=== PATIENT | male | born 1940 | race Caucasian/White ===

== ENCOUNTER 2021-09-03 20:20 | Inpatient (IN) | payer MEDICARE, SELFPAY ==
--- NOTE | ~2021-09-03 | MR_ITS ---
EXAMINATION: MR BRAIN WITHOUT CONTRAST CLINICAL INFORMATION: Rule out frontotemporal dementia. COMPARISON: None. TECHNIQUE: Multiplanar, multisequence imaging of the brain was performed without contrast. Slightly limited study with motion artifacts. FINDINGS: No diffusion abnormalities are identified to suggest an acute infarct. No mass effect or midline shift is seen. There is generalized parenchymal volume loss with concordant ex vacuo prominence of the ventricles. There is no accentuated volume loss within the frontal or temporal lobes relative to the remainder of the brain parenchyma. No evidence of hydrocephalus. No extra-axial fluid collections are seen. The brainstem and cerebellum are normal. The gradient refocused acquisition demonstrates no pathologic magnetic susceptibility artifact to indicate underlying acute or chronic blood products. The craniovertebral junction, marrow signal, and midline structures are normal. The major intracranial flow voids at the level of the [place] are preserved. The dural venous sinus flow voids are maintained. The left mastoid air cells are well aerated. There is lobulated mucosal thickening anteroinferiorly within the right maxillary sinus. Trace fluid in the right mastoid air cells. There is an incompletely characterized 2 cm mass in the superficial lobe of the right parotid gland. An additional heterogeneous T2 hyperintense 1.1 cm round lesion is noted within the superficial lobe of the left parotid gland as well. MR/MR head/brain wo con IMPRESSION: No acute intracranial process. Mild generalized parenchymal volume loss. 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 Recommend followup ENT evaluation.
[2021-09-03 21:30] VITALS: BMI 24.5
[2021-09-03 21:45] VITALS: BP 120/59; PULSE 89; RESP 17; TEMP 36.6; O2SAT 94
--- NOTE | 2021-09-03 22:39 | PC.ADMIT ---
Patient arrived via EMS stretcher onto unit at 20:35, signed a CV. 81year old male who lives independently with his : Patient was transferred from [facility] after spending 3 days on a medical unit for observation and gaining medical clearance. Per medical report and Crisis documentation, patient had been experiencing AVH for the last year that had worsened in the last month, which coincided with patient being started on Valium. Patient able to partake in admission assessment, calm and cooperative; A&Ox2-3, memory not fully intact, pleasantly confused; able to share experience of hallucinations that he had at home, Seeing people and places....I have never experienced anything like that before and it was scary. Per Crisis report, patient had reported command hallucinations sometimes the voices tell me to to hurt myself and others but I don't go there. Denying having AVH at this time; denies feeling hopeless or helpless at this time. Denies SI/HI. Patient reports having balance issues and sees a neurologist outpatient; patient reported two falls at home in the last 6 months, will be placed on [place] Risk Protocol with a bed alarm at night. Also according to his , patient was walking independently last week, uses no assistive devices other than grab bars in the house. Upon physical assessment he was noted to have a tremor in hands, greater in right hand/wrist; intermittent twitching of extremities at rest when in bed: noted to need multiple attempts to stand from seated position with a slight unsteady/wobbly gait; All other parts of physical assessment WNL. Patient was given a tour and oriented to the unit; signed releases; copy of HCP was placed in his chart. Upon Patient's request, this RN called and updated his Lizzy of his arrival. Patient placed on 15minute checks for safety.
[2021-09-04] MEDS: Levothyroxine Sodium 100 MCG TABLET PO (07:26)
[2021-09-04 08:35] VITALS: BP 118/69; PULSE 84; RESP 16; TEMP 36.2; O2SAT 95
[2021-09-04] MEDS: Multivitamin TABLET 1 TAB PO (08:50)
[2021-09-04] MEDS: hydroCHLOROthiazide 12.5 MG TABLET PO (08:50)
[2021-09-04] MEDS: Folic Acid 1 MG TABLET PO (08:50)
[2021-09-04] MEDS: Lithium Carbonate ER 300 MG TABLET.ER PO (08:51)
[2021-09-04] MEDS: ARIPiprazole 5 MG TABLET PO (08:51)
[2021-09-04] MEDS: amLODIPine Besylate 5 MG TABLET PO (08:51)
--- NOTE | 2021-09-04 14:06 | HO.PSYADMNOT ---
HPI Date of Service: 09/04/21 Chief Complaint: . HPI Narrative: pt reports he was hallucinating at home and presented to [facility] for help with hallucinations. he is aware he has been transferred here, to a hitesh unit, to pursue Tx for that. he reports he has not had any VH for 2 weeks, however, prior to admission to [facility]. the hallucinations could be of both animate and inanimate things. he states he realized there was a problem when he witness the trees in his back yard start walking away. denies SI/HI, states he is an upbeat dayanna. c/o not sleeping as well as he should, but otherwise no complaints. agreeable to increase HS regimen for better sleep. Past Psychiatric History: bipolar disorder Dx VH started a few yrs ago and he had w/u with CT [facility], neuropsych testing. risperidone was prescribed and was largely effective in addressing the VH. no H/O SI/SA/SIB/HI/HIB no h/o psych hosps long h/o outpt Tx and medication compliance Medical Evaluation Reviewed: Hospitalist Ella Pending [facility] Medical History (Updated 09/04/21 @ 14:19 by Ramana Youssef) Bipolar disorder Celiac disease Chronic kidney disease COPD (chronic obstructive pulmonary disease) Hypertension Narrative: vascular dementia Surgical History (Updated 09/04/21 @ 05:44 by Cherie Carver RN) History of hernia repair Family History: not obtained Social History: lives in a house with his . 61 yrs. 4 children. went to [employer] for education. was a teacher for 40 yrs. Substance History: h/o drinking 1-2x weekly until stopping in 1999 no other substance use Hx Trauma History: denies Diagnostics Vital Signs (24Hr): Vital Signs - 24 hr 09/03/21 21:45 09/04/21 08:35 Temperature 97.8 F 97.1 F Pulse Rate 89 84 Respiratory Rate 17 16 Blood Pressure 120/59 L 118/69 Pulse Oximetry 94 95 BMI result Body Mass Index 24.5 Meds/Allergies Meds Home Medications Acetaminophen (Acetaminophen 325 Mg Tablet) 650 mg PO Q6H PRN PRN Reason: Headache/Pain Mild Scale (1-3) Al Hydroxide/Mg Hydroxide (Magnesium Hydrox/Alum Hydrox 30 Ml Oral.Susp) 30 ml PO Q6H PRN PRN Reason: Heartburn/Nausea Amlodipine Besylate (Amlodipine Besylate 5 Mg Tablet) 5 mg PO DAILY [facility]; Protocol Last Admin: 09/04/21 08:51 Dose: 5 mg Documented by: Aripiprazole (Aripiprazole 5 Mg Tablet) 5 mg PO DAILY [facility] Last Admin: 09/04/21 08:51 Dose: 5 mg Documented by: Folic Acid (Folic Acid 1 Mg Tablet) 1 mg PO DAILY [facility] Last Admin: 09/04/21 08:50 Dose: 1 mg Documented by: Hydrochlorothiazide (Hydrochlorothiazide 12.5 Mg Tablet) 12.5 mg PO DAILY [facility]; Protocol Last Admin: 09/04/21 08:50 Dose: 12.5 mg Documented by: Hydroxyzine HCl (Hydroxyzine Hcl 25 Mg Tablet) 25 mg PO BEDTIME PRN PRN Reason: Anxiety Levothyroxine Sodium (Levothyroxine Sodium 100 Mcg Tablet) 100 mcg PO DAILY@0600 [facility] Last Admin: 09/04/21 07:26 Dose: 100 mcg Documented by: [place] Carbonate ([place] Carbonate Er 300 Mg Tablet.Er) 300 mg PO DAILY [facility] Last Admin: 09/04/21 08:51 Dose: 300 mg Documented by: Magnesium Hydroxide (Milk Of Magnesia 30 Ml Oral.Susp) 30 ml PO DAILY PRN PRN Reason: Constipation Multivitamins/Vitamin C (Multivitamin Tablet) 1 tab PO DAILY [facility] Last Admin: 09/04/21 08:50 Dose: 1 tab Documented by: Non-Formulary Medication (Trelegy Ellipta) 1 puff INHALE DAILY [facility] Olanzapine (Olanzapine 5 Mg Tablet) 5 mg PO DAILY PRN PRN Reason: Agitation Trazodone HCl (Trazodone Hcl 50 Mg Tablet) 12.5 mg PO TID PRN PRN Reason: Anxiety Trazodone HCl (Trazodone Hcl 25 Mg Halftab) 25 mg PO BEDTIME PRN PRN Reason: Insomnia Trazodone HCl (Trazodone Hcl 50 Mg Tablet) 50 mg PO BEDTIME PRN PRN Reason: Insomnia Allergies Allergies Allergy/AdvReac Type Severity Reaction Status Date / Time gluten Allergy Unknown Verified 09/04/21 07:52 Mental Status Exam Mental Status Exam Narrative: appropriately dressed and groomed. cooperative with interview. no PMA/PMR. speech nml in rate, amount, loudness, tone, latency. thoughts linear and logical. affect full range, consistent with context, normo-intense, non-labile. mood upbeat dayanna. denies SI/HI. denies any AVH since before he was admitted to [facility]. Assessment & Plan Assessment & Plan (1) Hallucinosis: Status: Acute Code(s): F28 - Other psychotic disorder not due to a substance or known physiological condition (2) Vascular dementia: Status: Acute Code(s): F01.50 - Vascular dementia without behavioral disturbance Assessment and Plan: continue med trial started at [facility] - abilify 5 daily with zyprexa 5 PRN. collateral in a.m. Reason for continued inpatient stay Substantial Risk for: harm to others, inability to function and rapid decompensation
[2021-09-04 19:30] VITALS: BP 131/61; PULSE 88; RESP 19; TEMP 36.4; O2SAT 97
[2021-09-05] MEDS: Levothyroxine Sodium 100 MCG TABLET PO (05:11)
[2021-09-05 08:00] VITALS: BP 121/64; PULSE 80; RESP 17; TEMP 36.4; O2SAT 95
[2021-09-05] MEDS: amLODIPine Besylate 5 MG TABLET PO (08:34)
[2021-09-05] MEDS: ARIPiprazole 5 MG TABLET PO (08:34)
[2021-09-05] MEDS: Multivitamin TABLET 1 TAB PO (08:34)
[2021-09-05] MEDS: Folic Acid 1 MG TABLET PO (08:34)
[2021-09-05] MEDS: hydroCHLOROthiazide 12.5 MG TABLET PO (08:34)
[2021-09-05] MEDS: Lithium Carbonate ER 300 MG TABLET.ER PO (08:34)
--- NOTE | 2021-09-05 12:45 | PM.IMCN ---
History of Present Illness Data of Consult Service Date: 09/05/21 Primary Care Provider: Dean Cuevas MD HPI Reason for consult: Routine Medical Consult This is a 81 yo M who is admitted to the [facility] unit. Medical services consulted as part of protocol. History is obtained from the patient and the [facility] records. Patient is seen and examined in his room. He offers no current physical complaints. PMH HTN CKD3 COPD Celiac disease PSH Hernia Repair FH ESRD in his brother SH Prior smoker and drinker -- quic tobacco and alcohol both in 1999 Denies illicit drug use Review of Systems Review of Systems: negative except HPI [facility] Medical History Bipolar disorder Celiac disease Chronic kidney disease COPD (chronic obstructive pulmonary disease) Hypertension Surgical History History of hernia repair Social History Household Members: Spouse Housing: House Do you presently have visiting nurse or other home services: No Patient Tobacco Use Status: Former Tobacco user Quit Date: 1999 Smoked in Last 30 Days: No Use of substances other than those prescribed or required for medical reasons: No Currently Displaying Signs/Symptoms of Drug Intoxication Withdrawal: No Have you been hit, kicked, punched, or otherwise hurt by someone within the past year? If so, by whom?: No Do you feel safe in your current relationship?: Yes Is there a partner from a previous relationship who is making you feel unsafe now?: No Are you made to feel afraid or neglected: No Advance Directives: Yes Advance Directives Information Provided: Yes Advance Directives on File: No (patient reports HCP is on file at [facility]) Do you have thoughts of harming others: None Do you have a plan to hurt others: No Plan Recently lost weight without trying: No Nutrition Risks: No Nutritional Risk Poor oral hygiene: No Meds Allergies Allergy/AdvReac Type Severity Reaction Status Date / Time gluten Allergy Unknown Verified 09/04/21 07:52 Active Medications: Current Medications Acetaminophen (Acetaminophen 325 Mg Tablet) 650 mg PO Q6H PRN PRN Reason: Headache/Pain Mild Scale (1-3) Al Hydroxide/Mg Hydroxide (Magnesium Hydrox/Alum Hydrox 30 Ml Oral.Susp) 30 ml PO Q6H PRN PRN Reason: Heartburn/Nausea Amlodipine Besylate (Amlodipine Besylate 5 Mg Tablet) 5 mg PO DAILY [facility]; Protocol Last Admin: 09/05/21 08:34 Dose: 5 mg Documented by: Aripiprazole (Aripiprazole 5 Mg Tablet) 5 mg PO DAILY [facility] Last Admin: 09/05/21 08:34 Dose: 5 mg Documented by: Folic Acid (Folic Acid 1 Mg Tablet) 1 mg PO DAILY [facility] Last Admin: 09/05/21 08:34 Dose: 1 mg Documented by: Hydrochlorothiazide (Hydrochlorothiazide 12.5 Mg Tablet) 12.5 mg PO DAILY [facility]; Protocol Last Admin: 09/05/21 08:34 Dose: 12.5 mg Documented by: Hydroxyzine HCl (Hydroxyzine Hcl 25 Mg Tablet) 25 mg PO BEDTIME PRN PRN Reason: Anxiety Levothyroxine Sodium (Levothyroxine Sodium 100 Mcg Tablet) 100 mcg PO DAILY@0600 [facility] Last Admin: 09/05/21 05:11 Dose: 100 mcg Documented by: [place] Carbonate ([place] Carbonate Er 300 Mg Tablet.Er) 300 mg PO DAILY [facility] Last Admin: 09/05/21 08:34 Dose: 300 mg Documented by: Magnesium Hydroxide (Milk Of Magnesia 30 Ml Oral.Susp) 30 ml PO DAILY PRN PRN Reason: Constipation Multivitamins/Vitamin C (Multivitamin Tablet) 1 tab PO DAILY [facility] Last Admin: 09/05/21 08:34 Dose: 1 tab Documented by: Olanzapine (Olanzapine 5 Mg Tablet) 5 mg PO DAILY PRN PRN Reason: Agitation Trazodone HCl (Trazodone Hcl 50 Mg Tablet) 12.5 mg PO TID PRN PRN Reason: Anxiety Trazodone HCl (Trazodone Hcl 25 Mg Halftab) 25 mg PO BEDTIME PRN PRN Reason: Insomnia Trazodone HCl (Trazodone Hcl 50 Mg Tablet) 50 mg PO BEDTIME PRN PRN Reason: Insomnia Home Medications Medication Instructions Recorded Confirmed Last Taken Type Trelegy Ellipta 1 puff INHALATION DAILY 09/03/21 09/03/21 09/03/21 09:00 History acetaminophen 500 mg tablet 1,000 mg PO QPM PRN 09/03/21 09/03/21 Unknown History amlodipine 5 mg tablet 5 mg PO DAILY 09/03/21 09/03/2109/03/22 09:00 History aripiprazole 5 mg tablet 5 mg PO DAILY 09/03/21 09/03/21 09/03/21 09:00 History folic acid 1 mg tablet 1 mg PO DAILY 09/03/21 09/03/21 09/03/21 09:00 History hydrochlorothiazide 25 mg tablet 12.5 mg PO DAILY 09/03/21 09/03/21 09/03/21 09:00 History levothyroxine 100 mcg tablet 100 mcg PO DAILY 09/03/21 09/03/21 09/03/21 07:00 History lithium carbonate 300 mg 300 mg PO DAILY 09/03/21 09/03/21 09/03/21 09:00 History tablet,extended release multivitamin 1 tab PO DAILY 09/03/21 09/03/21 09/03/21 09:00 History olanzapine 5 mg tablet 5 mg PO DAILY PRN 09/03/21 09/03/21 Unknown History trazodone 50 mg tablet 12.5 mg PO TID PRN 09/03/21 09/03/21 Unknown History trazodone 50 mg tablet 25 mg PO BEDTIME PRN 09/03/21 09/03/21 Unknown History Physical Exam Vital Signs and Narrative: Vital Signs: Last Vital Signs Temp 97.5 F 09/05/21 08:00 Pulse 80 09/05/21 08:00 Resp 17 09/05/21 08:00 BP 121/64 09/05/21 08:00 Pulse Ox 95 09/05/21 08:00 BMI result Body Mass Index 24.5 Const: Other: Constitutional - Awake and Alert, No apparent distress Eyes - PERRLA, EOMI Cardiovascular - S1S2, RRR, No edema Respiratory - Normal lung expansion, Normal respiratory effort, No respiratory distress, CTA bilaterally Gastrointestinal - NT / ND; +BS; No rebound or guarding - No CVA tenderness Extremities - no calf tenderness bilaterally, no swelling Musculoskeletal - Normal inspection, normal ROM Skin - Warm/Dry Neurological - Alert & oriented x3, No focal deficit; CN 2-12 in tact bilaterally Psychological - Appropriate affect Assessment and Plan (1) Routine medical exam: Status: Acute This is a 81 yo M admitted to Psychiatric. Medical cosult requested as part of protocol after transfer from outside facility. Patient has no active medical issues and appears to be stable from the perspective. Continue his baseline COPD, HTN meds. Continue other routine meds as appropriate. Will sign off.
--- NOTE | 2021-09-05 14:18 | P.PNPSI_ITS ---
Subjective Subjective Date of Service: 09/05/21 Reason For Visit: . Subjective Notes: Conditional Voluntary Interim History: The nursing staff reported that the patient has been calm and cooperative, but, he stated that he saw his and he have father visual h allucinations. On interview, the patient denies any visual hallucinations at this moment he states that he feels much better but he admitted that he is slightly dizzy.. Mental Status Exam Mental Status Exam Patient Appearance: Well Grooomed Patient Orientation: Person Level of Consciousness: Awake and Alert Patient Behavior: Guarded, Passive and Anxious Mood Description: Constricted Affect Description: Constricted Ability to Follow Directions: Good Speech Pattern: Clear Hallucinations: Visual Delusions: Not Present Thought Process: Evasive Thought Content: positive for Perseveration and positive for Poverty of Content Judgement: Fair Diagnostics Vital Signs (24Hr): Vital Signs - 24 hr 09/04/21 19:30 09/05/21 08:00 Temperature 97.6 F 97.5 F Pulse Rate 88 80 Respiratory Rate 19 17 Blood Pressure 131/61 121/64 Pulse Oximetry 97 95 BMI result Body Mass Index 24.5 Medications Medications Current Medications Acetaminophen (Acetaminophen 325 Mg Tablet) 650 mg PO Q6H PRN PRN Reason: Headache/Pain Mild Scale (1-3) Al Hydroxide/Mg Hydroxide (Magnesium Hydrox/Alum Hydrox 30 Ml Oral.Susp) 30 ml PO Q6H PRN PRN Reason: Heartburn/Nausea Amlodipine Besylate (Amlodipine Besylate 5 Mg Tablet) 5 mg PO DAILY [facility]; Protocol Last Admin: 09/05/21 08:34 Dose: 5 mg Documented by: Aripiprazole (Aripiprazole 5 Mg Tablet) 5 mg PO DAILY [facility] Last Admin: 09/05/21 08:34 Dose: 5 mg Documented by: Folic Acid (Folic Acid 1 Mg Tablet) 1 mg PO DAILY [facility] Last Admin: 09/05/21 08:34 Dose: 1 mg Documented by: Hydrochlorothiazide (Hydrochlorothiazide 12.5 Mg Tablet) 12.5 mg PO DAILY [facility]; Protocol Last Admin: 09/05/21 08:34 Dose: 12.5 mg Documented by: Hydroxyzine HCl (Hydroxyzine Hcl 25 Mg Tablet) 25 mg PO BEDTIME PRN PRN Reason: Anxiety Levothyroxine Sodium (Levothyroxine Sodium 100 Mcg Tablet) 100 mcg PO DAILY@0600 [facility] Last Admin: 09/05/21 05:11 Dose: 100 mcg Documented by: [place] Carbonate ([place] Carbonate Er 300 Mg Tablet.Er) 300 mg PO DAILY [facility] Last Admin: 09/05/21 08:34 Dose: 300 mg Documented by: Magnesium Hydroxide (Milk Of Magnesia 30 Ml Oral.Susp) 30 ml PO DAILY PRN PRN Reason: Constipation Multivitamins/Vitamin C (Multivitamin Tablet) 1 tab PO DAILY [facility] Last Admin: 09/05/21 08:34 Dose: 1 tab Documented by: Olanzapine (Olanzapine 5 Mg Tablet) 5 mg PO DAILY PRN PRN Reason: Agitation Trazodone HCl (Trazodone Hcl 50 Mg Tablet) 12.5 mg PO TID PRN PRN Reason: Anxiety Trazodone HCl (Trazodone Hcl 25 Mg Halftab) 25 mg PO BEDTIME PRN PRN Reason: Insomnia Trazodone HCl (Trazodone Hcl 50 Mg Tablet) 50 mg PO BEDTIME PRN PRN Reason: Insomnia Allergies Allergies Allergy/AdvReac Type Severity Reaction Status Date / Time gluten Allergy Unknown Verified 09/04/21 07:52 Assessment & Plan Assessment & Plan (1) Routine medical exam: Status: Acute Code(s): Z00.00 - Encounter for general adult medical examination without abnormal findings Assessment and Plan: the patient is a 81-year-old male with a long history of bipolar disorder admitted for exacerbation of visual hallucinations and disorganized behavior. According to the chart, the patient has responded in the past with Risperdal. Currently he is on Abilify. On interview, the patient denies new symptoms he feels much better. Plan 1. Blood work with lithium level, basic metabolic panel lipid profile and others order for tomorrow morning. 2. Continue same medications. 3. Gather collateral information I spent minutes with the patient and/or on the patient floor today, greater than?50% of which was spent counseling/coordinating care. Reason for contiued inpatient stay Substantial Risk for: inability to function, rapid decompensation and med/psych decompensation
--- NOTE | 2021-09-05 14:43 | MHC.CLN ---
NUTRITION PATIENT WITH DX CELIAC. DIET=REGULAR, GLUTEN FREE.
[2021-09-05 18:00] VITALS: BP 145/64; PULSE 86; RESP 16; TEMP 36.6; O2SAT 95
[2021-09-05] MEDS: traZODone HCL 50 MG TABLET PO (21:16)
[2021-09-06] MEDS: Levothyroxine Sodium 100 MCG TABLET PO (05:09)
[2021-09-06 06:00] VITALS: BP 133/66; PULSE 71; RESP 16; TEMP 36; O2SAT 94
[2021-09-06] MEDS: Multivitamin TABLET 1 TAB PO (08:01)
[2021-09-06] MEDS: amLODIPine Besylate 5 MG TABLET PO (08:01)
[2021-09-06] MEDS: Lithium Carbonate ER 300 MG TABLET.ER PO (08:02)
[2021-09-06] MEDS: ARIPiprazole 5 MG TABLET PO (08:02)
[2021-09-06] MEDS: Folic Acid 1 MG TABLET PO (08:02)
[2021-09-06] MEDS: hydroCHLOROthiazide 12.5 MG TABLET PO (08:02)
[2021-09-06 08:13] LABS: MANUAL DIFF FLAG NO
[2021-09-06 08:17] LABS: Basophils Absolute Auto 0.1 X10*3/uL (0.0-0.2); Basophils Percent Auto 1.4 % (0-2); Eosinophils Absolute Auto 0.6 X10*3/uL (0.0-0.4); Hematocrit 41.3 % (42.0-52.0); Hemoglobin 13.3 g/dl (14.0-18.0); Imm Gran Abs Auto 0.02 X10*3/uL (0.00-0.03); Imm Gran Pct Auto 0.2 % (0.0-0.4); Lymphocytes Absolute Auto 1.4 X10*3/uL (1.2-4.9); Lymphocytes Percent Auto 14.7 % (20-40); Mean Corpuscular HGB Conc 32.2 g/dl (31.0-36.0); Mean Corpuscular Hemoglobin 30.6 pg (27.0-33.0); Mean Corpuscular Volume 95.2 fL (80.0-98.0); Mean Platelet Volume 10.5 fL (9.4-12.4); Monocytes Absolute Auto 0.9 X10*3/uL (0.1-1.2); Monocytes Percent Auto 9.4 % (2-11); Neutrophils Absolute Auto 6.4 x10*3/uL (2.0-8.3); Neutrophils Percent Auto 68.3 % (45-73); Platelet Count 341 X10*3/uL (160-400); Red Blood Count 4.34 X10*6/uL (4.60-5.80); Red Cell Distribution Width 12.6 % (11.0-16.0); White Blood Count 9.4 X10*3/uL (4.8-10.8)
[2021-09-06 08:25] LABS: Estimated Average Glucose 120 mg/dL; Hemoglobin A1c % 5.8 %
[2021-09-06 08:29] LABS: Lithium 0.74 mmol/L (0.60-1.20)
[2021-09-06 08:48] LABS: Alanine Aminotransferase 15 U/L (0-40); Albumin Level 4.3 g/dL (3.5-5.0); Alkaline Phosphatase 69 U/L (39-117); Anion Gap 12 (12-20); Aspartate Amino Transferase 15 U/L (5-37); Bilirubin Direct 0.3 mg/dL (0.0-0.5); Bilirubin Total 0.7 mg/dL (0.0-1.0); Blood Urea Nitrogen 33 mg/dL (9-16); Calcium 10.7 mg/dL (8.4-10.2); Carbon Dioxide 25 mmol/L (22-29); Chloride 107 mmol/L (96-108); Cholesterol 187 mg/dL; Estimated Glomerular Filt Rate 40; Glucose Random 127 mg/dL (60-115); HDL Cholesterol 44 mg/dL; LDL Cholesterol Calculated 116 mg/dl; Potassium 3.9 mmol/L (3.3-5.1); Sodium 140 mmol/L (135-145); Total Protein 6.7 g/dL (6.5-8.0); Triglycerides 138 mg/dL
--- NOTE | 2021-09-06 13:33 | P.PNPSI_ITS ---
Subjective Subjective Date of Service: 09/06/21 Reason For Visit: . Subjective Notes: Conditional Voluntary Interim History: The staff reported that the patient was pleasant, he spoke with his and children over the phone. He was confused yesterday, about going home . We had a family meeting today at 2 pm and the daughter disclosed that in the past, while he was at [facility], he was studied to R/O Lewy body dementia. On interview, he was pleasant and cooperative, denies hallucinations. I ordered yesterday [place] and other bloodwork and so far, his lithium is therapeutic with CR over 1.6. Mental Status Exam Mental Status Exam Patient Appearance: Well Grooomed Patient Orientation: Person Level of Consciousness: Awake Patient Behavior: Cooperative Mood Description: Calm Affect Description: Constricted Patient Cognition Impaired: Yes Ability to Follow Directions: Good Speech Pattern: Clear Hallucinations: None Delusions: Not Present Thought Process: Linear and Evasive Thought Content: positive for Circumstantial Judgement: Fair Diagnostics Vital Signs (24Hr): Vital Signs - 24 hr 09/05/21 18:00 09/06/21 06:00 Temperature 97.8 F 96.8 F Pulse Rate 86 71 Respiratory Rate 16 16 Blood Pressure 145/64 H 133/66 Pulse Oximetry 95 94 BMI result Body Mass Index 24.5 Labs Results: 09/06/21 08:09 09/06/21 08:09 Labs: Laboratory Results - last 48 hr 09/06/21 09/06/21 09/06/21 08:08 08:09 08:09 WBC 9.4 RBC 4.34 L Hgb 13.3 L Hct 41.3 L MCV 95.2 MCH 30.6 MCHC 32.2 RDW 12.6 Plt Count 341 MPV 10.5 Immature Gran % (Auto) 0.2 Neut % (Auto) 68.3 Lymph % (Auto) 14.7 L [place] % (Auto) 9.4 Eos % (Auto) 6.0 H Baso % (Auto) 1.4 Lymph # (Auto) 1.4 [place] # (Auto) 0.9 Eos # (Auto) 0.6 H Baso # (Auto) 0.1 Abs Immat Gran (auto) 0.02 Absolute Neuts (auto) 6.4 Absolute Nucleated RBC 0.000 Nucleated RBC % (auto) 0.0 Sodium 140 Potassium 3.9 Chloride 107 Carbon Dioxide 25 Anion Gap 12 BUN 33 H Creatinine 1.67 H Estim Creat Clear Calc 37.0 Estimated GFR 40 Random Glucose 127 H Estimat Average Glucose Hemoglobin A1c % Calcium 10.7 H Total Bilirubin 0.7 Direct Bilirubin 0.3 AST 15 ALT 15 Alkaline Phosphatase 69 Total Protein 6.7 Albumin 4.3 Triglycerides 138 Cholesterol 187 LDL Cholesterol, Calc 116 HDL Cholesterol 44 [place] 0.74 09/06/21 08:09 WBC RBC Hgb Hct MCV MCH MCHC RDW Plt Count MPV Immature Gran % (Auto) Neut % (Auto) Lymph % (Auto) [place] % (Auto) Eos % (Auto) Baso % (Auto) Lymph # (Auto) [place] # (Auto) Eos # (Auto) Baso # (Auto) Abs Immat Gran (auto) Absolute Neuts (auto) Absolute Nucleated RBC Nucleated RBC % (auto) Sodium Potassium Chloride Carbon Dioxide Anion Gap BUN Creatinine Estim Creat Clear Calc Estimated GFR Random Glucose Estimat Average Glucose 120 Hemoglobin A1c % 5.8 Calcium Total Bilirubin Direct Bilirubin AST ALT Alkaline Phosphatase Total Protein Albumin Triglycerides Cholesterol LDL Cholesterol, Calc HDL Cholesterol [place] Medications Medications Current Medications Acetaminophen (Acetaminophen 325 Mg Tablet) 650 mg PO Q6H PRN PRN Reason: Headache/Pain Mild Scale (1-3) Al Hydroxide/Mg Hydroxide (Magnesium Hydrox/Alum Hydrox 30 Ml Oral.Susp) 30 ml PO Q6H PRN PRN Reason: Heartburn/Nausea Amlodipine Besylate (Amlodipine Besylate 5 Mg Tablet) 5 mg PO DAILY [facility]; Protocol Last Admin: 09/06/21 08:01 Dose: 5 mg Documented by: Aripiprazole (Aripiprazole 5 Mg Tablet) 5 mg PO DAILY [facility] Last Admin: 09/06/21 08:02 Dose: 5 mg Documented by: Folic Acid (Folic Acid 1 Mg Tablet) 1 mg PO DAILY [facility] Last Admin: 09/06/21 08:02 Dose: 1 mg Documented by: Hydrochlorothiazide (Hydrochlorothiazide 12.5 Mg Tablet) 12.5 mg PO DAILY [facility]; Protocol Last Admin: 09/06/21 08:02 Dose: 12.5 mg Documented by: Hydroxyzine HCl (Hydroxyzine Hcl 25 Mg Tablet) 25 mg PO BEDTIME PRN PRN Reason: Anxiety Levothyroxine Sodium (Levothyroxine Sodium 100 Mcg Tablet) 100 mcg PO DAILY@0600 [facility] Last Admin: 09/06/21 05:09 Dose: 100 mcg Documented by: [place] Carbonate ([place] Carbonate Er 300 Mg Tablet.Er) 300 mg PO DAILY [facility] Last Admin: 09/06/21 08:02 Dose: 300 mg Documented by: Magnesium Hydroxide (Milk Of Magnesia 30 Ml Oral.Susp) 30 ml PO DAILY PRN PRN Reason: Constipation Multivitamins/Vitamin C (Multivitamin Tablet) 1 tab PO DAILY [facility] Last Admin: 09/06/21 08:01 Dose: 1 tab Documented by: Olanzapine (Olanzapine 5 Mg Tablet) 5 mg PO DAILY PRN PRN Reason: Agitation Trazodone HCl (Trazodone Hcl 50 Mg Tablet) 12.5 mg PO TID PRN PRN Reason: Anxiety Trazodone HCl (Trazodone Hcl 25 Mg Halftab) 25 mg PO BEDTIME PRN PRN Reason: Insomnia Trazodone HCl (Trazodone Hcl 50 Mg Tablet) 50 mg PO BEDTIME PRN PRN Reason: Insomnia Last Admin: 09/05/21 21:16 Dose: 50 mg Documented by: Allergies Allergies Allergy/AdvReac Type Severity Reaction Status Date / Time gluten Allergy Unknown Verified 09/04/21 07:52 Assessment & Plan Assessment & Plan (1) Routine medical exam: Status: Acute Code(s): Z00.00 - Encounter for general adult medical examination without abnormal findings Assessment and Plan: the patient is a 81-year-old male with a long history of bipolar disorder admitted for exacerbation of visual hallucinations and disorganized behavior. According to the chart, the patient has responded in the past with Risperdal. Currently he is on Abilify. On interview, the patient denies new symptoms he feels much better. Plan 1. Blood work with lithium level, basic metabolic panel lipid profile and others with normal [place] with Cr 1.6. 2. Continue same medications. 3. Gather collateral information from his . 4. MRI brain I spent minutes with the patient and/or on the patient floor today, greater than?50% of which was spent counseling/coordinating care. Reason for contiued inpatient stay Substantial Risk for: inability to function, rapid decompensation and med/psych decompensation
[2021-09-06 18:00] VITALS: BP 94/51; PULSE 82; RESP 16; TEMP 36.7; O2SAT 98
[2021-09-07] MEDS: Levothyroxine Sodium 100 MCG TABLET PO (06:24)
[2021-09-07 08:00] VITALS: BP 116/56; PULSE 84; RESP 17; TEMP 36; O2SAT 95
[2021-09-07] MEDS: Lithium Carbonate ER 300 MG TABLET.ER PO (08:16)
[2021-09-07] MEDS: Folic Acid 1 MG TABLET PO (08:16)
[2021-09-07] MEDS: hydroCHLOROthiazide 12.5 MG TABLET PO (08:16)
[2021-09-07] MEDS: ARIPiprazole 5 MG TABLET PO (08:16)
[2021-09-07] MEDS: amLODIPine Besylate 5 MG TABLET PO (08:16)
[2021-09-07] MEDS: Multivitamin TABLET 1 TAB PO (08:17)
[2021-09-07] MEDS: LORazepam 1 MG TABLET PO (11:54)
--- NOTE | 2021-09-07 15:09 | HO.PSYCHPN ---
Subjective Subjective Date of Service: 09/07/21 Reason For Visit: . Subjective Notes: Conditional Voluntary Interim History: The nursing staff reported that he attended to a few groups but he is confused at times. His family reported that he was assessed by a neurologist before to rule out frontotemporal dementia or Lewy body dementia. We ordered an MRI and so far it came back normal. On interview the patient denies new symptoms but he looks confused at times. Mental Status Exam Mental Status Exam Patient Appearance: Disheveled Patient Orientation: Person Level of Consciousness: Awake Patient Behavior: Cooperative and Suspicious Mood Description: Withdrawn Affect Description: Constricted Patient Cognition Impaired: Yes Ability to Follow Directions: Good Speech Pattern: Clear Hallucinations: Auditory and Visual Delusions: Paranoid Ideation Thought Process: Distracted and Slowed Thinking Thought Content: positive for Poverty of Content and positive for Loose Associations Judgement: Fair Diagnostics Vital Signs (24Hr): Vital Signs - 24 hr 09/06/21 18:00 09/07/21 08:00 Temperature 98.1 F 96.8 F Pulse Rate 82 84 Respiratory Rate 16 17 Blood Pressure 94/51 L 116/56 L Pulse Oximetry 98 95 BMI result Body Mass Index 24.5 Labs Results: 09/06/21 08:09 09/06/21 08:09 Labs: Laboratory Results - last 48 hr 09/06/21 09/06/21 09/06/21 08:08 08:09 08:09 WBC 9.4 RBC 4.34 L Hgb 13.3 L Hct 41.3 L MCV 95.2 MCH 30.6 MCHC 32.2 RDW 12.6 Plt Count 341 MPV 10.5 Immature Gran % (Auto) 0.2 Neut % (Auto) 68.3 Lymph % (Auto) 14.7 L [place] % (Auto) 9.4 Eos % (Auto) 6.0 H Baso % (Auto) 1.4 Lymph # (Auto) 1.4 [place] # (Auto) 0.9 Eos # (Auto) 0.6 H Baso # (Auto) 0.1 Abs Immat Gran (auto) 0.02 Absolute Neuts (auto) 6.4 Absolute Nucleated RBC 0.000 Nucleated RBC % (auto) 0.0 Sodium 140 Potassium 3.9 Chloride 107 Carbon Dioxide 25 Anion Gap 12 BUN 33 H Creatinine 1.67 H Estim Creat Clear Calc 37.0 Estimated GFR 40 Random Glucose 127 H Estimat Average Glucose Hemoglobin A1c % Calcium 10.7 H Total Bilirubin 0.7 Direct Bilirubin 0.3 AST 15 ALT 15 Alkaline Phosphatase 69 Total Protein 6.7 Albumin 4.3 Triglycerides 138 Cholesterol 187 LDL Cholesterol, Calc 116 HDL Cholesterol 44 [place] 0.74 09/06/21 08:09 WBC RBC Hgb Hct MCV MCH MCHC RDW Plt Count MPV Immature Gran % (Auto) Neut % (Auto) Lymph % (Auto) [place] % (Auto) Eos % (Auto) Baso % (Auto) Lymph # (Auto) [place] # (Auto) Eos # (Auto) Baso # (Auto) Abs Immat Gran (auto) Absolute Neuts (auto) Absolute Nucleated RBC Nucleated RBC % (auto) Sodium Potassium Chloride Carbon Dioxide Anion Gap BUN Creatinine Estim Creat Clear Calc Estimated GFR Random Glucose Estimat Average Glucose 120 Hemoglobin A1c % 5.8 Calcium Total Bilirubin Direct Bilirubin AST ALT Alkaline Phosphatase Total Protein Albumin Triglycerides Cholesterol LDL Cholesterol, Calc HDL Cholesterol [place] Imaging Radiology Impressions: ITS Impressions Brain MRI 09/07/21 12:45 IMPRESSION: No acute intracranial process. Mild generalized parenchymal volume loss. 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 Recommend followup ENT evaluation. Medications Medications Current Medications Acetaminophen (Acetaminophen 325 Mg Tablet) 650 mg PO Q6H PRN PRN Reason: Headache/Pain Mild Scale (1-3) Al Hydroxide/Mg Hydroxide (Magnesium Hydrox/Alum Hydrox 30 Ml Oral.Susp) 30 ml PO Q6H PRN PRN Reason: Heartburn/Nausea Amlodipine Besylate (Amlodipine Besylate 5 Mg Tablet) 5 mg PO DAILY [facility]; Protocol Last Admin: 09/07/21 08:16 Dose: 5 mg Documented by: Aripiprazole (Aripiprazole 5 Mg Tablet) 5 mg PO DAILY [facility] Last Admin: 09/07/21 08:16 Dose: 5 mg Documented by: Folic Acid (Folic Acid 1 Mg Tablet) 1 mg PO DAILY [facility] Last Admin: 09/07/21 08:16 Dose: 1 mg Documented by: Hydrochlorothiazide (Hydrochlorothiazide 12.5 Mg Tablet) 12.5 mg PO DAILY [facility]; Protocol Last Admin: 09/07/21 08:16 Dose: 12.5 mg Documented by: Hydroxyzine HCl (Hydroxyzine Hcl 25 Mg Tablet) 25 mg PO BEDTIME PRN PRN Reason: Anxiety Levothyroxine Sodium (Levothyroxine Sodium 100 Mcg Tablet) 100 mcg PO DAILY@0600 [facility] Last Admin: 09/07/21 06:24 Dose: 100 mcg Documented by: [place] Carbonate ([place] Carbonate Er 300 Mg Tablet.Er) 300 mg PO DAILY [facility] Last Admin: 09/07/21 08:16 Dose: 300 mg Documented by: Magnesium Hydroxide (Milk Of Magnesia 30 Ml Oral.Susp) 30 ml PO DAILY PRN PRN Reason: Constipation Multivitamins/Vitamin C (Multivitamin Tablet) 1 tab PO DAILY [facility] Last Admin: 09/07/21 08:17 Dose: 1 tab Documented by: Olanzapine (Olanzapine 5 Mg Tablet) 5 mg PO DAILY PRN PRN Reason: Agitation Trazodone HCl (Trazodone Hcl 50 Mg Tablet) 12.5 mg PO TID PRN PRN Reason: Anxiety Trazodone HCl (Trazodone Hcl 25 Mg Halftab) 25 mg PO BEDTIME PRN PRN Reason: Insomnia Trazodone HCl (Trazodone Hcl 50 Mg Tablet) 50 mg PO BEDTIME PRN PRN Reason: Insomnia Last Admin: 09/05/21 21:16 Dose: 50 mg Documented by: Allergies Allergies Allergy/AdvReac Type Severity Reaction Status Date / Time gluten Allergy Unknown Verified 09/04/21 07:52 Assessment & Plan Assessment & Plan (1) Routine medical exam: Status: Acute Code(s): Z00.00 - Encounter for general adult medical examination without abnormal findings Assessment and Plan: the patient is a 81-year-old male with a long history of bipolar disorder admitted for exacerbation of visual hallucinations and disorganized behavior. According to the chart, the patient has responded in the past with Risperdal. Currently he is on Abilify. On interview, the patient denies new symptoms he feels much better. Plan 1. Blood work with lithium level, basic metabolic panel lipid profile and others with normal [place] with Cr 1.6. 2. Continue same medications. 3. Gather collateral information from his . 4. MRI brain I spent minutes with the patient and/or on the patient floor today, greater than?50% of which was spent counseling/coordinating care. Reason for contiued inpatient stay Substantial Risk for: inability to function, rapid decompensation and med/psych decompensation
[2021-09-07 18:00] VITALS: BP 141/74; PULSE 84; RESP 19; TEMP 37; O2SAT 96
[2021-09-08] MEDS: Levothyroxine Sodium 100 MCG TABLET PO (05:51)
[2021-09-08 06:00] VITALS: BP 121/56; PULSE 71; RESP 16; TEMP 36.3; O2SAT 98
[2021-09-08 07:00] VITALS: BMI 23.7
[2021-09-08] MEDS: hydroCHLOROthiazide 12.5 MG TABLET PO (08:19)
[2021-09-08] MEDS: ARIPiprazole 5 MG TABLET PO (08:19)
[2021-09-08] MEDS: Lithium Carbonate ER 300 MG TABLET.ER PO (08:19)
[2021-09-08] MEDS: Multivitamin TABLET 1 TAB PO (08:20)
[2021-09-08] MEDS: amLODIPine Besylate 5 MG TABLET PO (08:20)
[2021-09-08] MEDS: Folic Acid 1 MG TABLET PO (08:20)
--- NOTE | 2021-09-08 15:21 | HO.PSYCHPN ---
Subjective Subjective Date of Service: 09/08/21 Reason For Visit: . Subjective Notes: Conditional Voluntary Interim History: the nursing staff reported that the patient has been sundowning in the evening, more confused with auditory hallucinations. Apparently yesterday, in the evening, he have auditory hallucinations commanding to stop eating. On interview the patient was pleasant and cooperative, minimizing his symptoms. I called his neurologist Dr. Vera at [facility] [phone] and I have a long conversation regarding his case and apparently, the patient does not have memory loss so the diagnosis of dementia is unlikely. His MRI came back normal. We talked with his and later with his daughter and they agreed that we should stop restart Risperdal and discontinue Abilify. As per Dr. Vera, the Abilify was started by the primary care physician. Mental Status Exam Mental Status Exam Patient Appearance: Well Grooomed Patient Orientation: Person Level of Consciousness: Awake Patient Behavior: Guarded and Cooperative Mood Description: Withdrawn Affect Description: Constricted Patient Cognition Impaired: No Speech Pattern: Clear Hallucinations: Auditory Delusions: Ideas of Reference Thought Process: Distracted and Evasive Thought Content: positive for Perseveration and positive for Poverty of Content Judgement: Fair Diagnostics Vital Signs (24Hr): Vital Signs - 24 hr 09/07/21 18:00 09/08/21 06:00 Temperature 98.6 F 97.3 F Pulse Rate 84 71 Respiratory Rate 19 16 Blood Pressure 141/74 H 121/56 L Pulse Oximetry 96 98 BMI result Body Mass Index 23.7 Labs Results: 09/06/21 08:09 09/06/21 08:09 Imaging Radiology Impressions: ITS Impressions Brain MRI 09/07/21 12:45 IMPRESSION: No acute intracranial process. Mild generalized parenchymal volume loss. 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 Recommend followup ENT evaluation. Medications Medications Current Medications Acetaminophen (Acetaminophen 325 Mg Tablet) 650 mg PO Q6H PRN PRN Reason: Headache/Pain Mild Scale (1-3) Al Hydroxide/Mg Hydroxide (Magnesium Hydrox/Alum Hydrox 30 Ml Oral.Susp) 30 ml PO Q6H PRN PRN Reason: Heartburn/Nausea Amlodipine Besylate (Amlodipine Besylate 5 Mg Tablet) 5 mg PO DAILY [facility]; Protocol Last Admin: 09/08/21 08:20 Dose: 5 mg Documented by: Folic Acid (Folic Acid 1 Mg Tablet) 1 mg PO DAILY [facility] Last Admin: 09/08/21 08:20 Dose: 1 mg Documented by: Hydrochlorothiazide (Hydrochlorothiazide 12.5 Mg Tablet) 12.5 mg PO DAILY [facility]; Protocol Last Admin: 09/08/21 08:19 Dose: 12.5 mg Documented by: Hydroxyzine HCl (Hydroxyzine Hcl 25 Mg Tablet) 25 mg PO BEDTIME PRN PRN Reason: Anxiety Levothyroxine Sodium (Levothyroxine Sodium 100 Mcg Tablet) 100 mcg PO DAILY@0600 [facility] Last Admin: 09/08/21 05:51 Dose: 100 mcg Documented by: [place] Carbonate ([place] Carbonate Er 300 Mg Tablet.Er) 300 mg PO DAILY [facility] Last Admin: 09/08/21 08:19 Dose: 300 mg Documented by: Magnesium Hydroxide (Milk Of Magnesia 30 Ml Oral.Susp) 30 ml PO DAILY PRN PRN Reason: Constipation Multivitamins/Vitamin C (Multivitamin Tablet) 1 tab PO DAILY [facility] Last Admin: 09/08/21 08:20 Dose: 1 tab Documented by: Olanzapine (Olanzapine 5 Mg Tablet) 5 mg PO DAILY PRN PRN Reason: Agitation Risperidone (Risperidone 0.5 Mg Tablet) 0.5 mg PO BID [facility] Trazodone HCl (Trazodone Hcl 50 Mg Tablet) 12.5 mg PO TID PRN PRN Reason: Anxiety Trazodone HCl (Trazodone Hcl 25 Mg Halftab) 25 mg PO BEDTIME PRN PRN Reason: Insomnia Trazodone HCl (Trazodone Hcl 50 Mg Tablet) 50 mg PO BEDTIME PRN PRN Reason: Insomnia Last Admin: 09/05/21 21:16 Dose: 50 mg Documented by: Allergies Allergies Allergy/AdvReac Type Severity Reaction Status Date / Time gluten Allergy Unknown Verified 09/04/21 07:52 Assessment & Plan Assessment & Plan (1) Routine medical exam: Status: Acute Code(s): Z00.00 - Encounter for general adult medical examination without abnormal findings Assessment and Plan: the patient is a 81-year-old male with a long history of bipolar disorder admitted for exacerbation of visual hallucinations and disorganized behavior. According to the chart, the patient has responded in the past with Risperdal. Currently he is on Abilify. On interview, the patient denies new symptoms he feels much better. Plan 1. Discontinue Abilify. 2. Start Risperdal 0.5 mg p.o. b.i.d. to target psychosis. 3. Reassessment and gather more collateral information I spent minutes with the patient and/or on the patient floor today, greater than?50% of which was spent counseling/coordinating care. Reason for contiued inpatient stay Substantial Risk for: inability to function, rapid decompensation and med/psych decompensation
[2021-09-08 18:00] VITALS: BP 136/62; PULSE 82; RESP 18; TEMP 36.4; O2SAT 96
[2021-09-08] MEDS: risperiDONE 0.5 MG TABLET PO (20:08)
[2021-09-09] MEDS: Levothyroxine Sodium 100 MCG TABLET PO (05:40)
[2021-09-09 06:00] VITALS: BP 124/61; PULSE 79; RESP 18; TEMP 36; O2SAT 95
[2021-09-09] MEDS: amLODIPine Besylate 5 MG TABLET PO (08:00)
[2021-09-09] MEDS: Multivitamin TABLET 1 TAB PO (08:00)
[2021-09-09] MEDS: risperiDONE 0.5 MG TABLET PO ×2 (08:00→20:21)
[2021-09-09] MEDS: Folic Acid 1 MG TABLET PO (08:01)
[2021-09-09] MEDS: Lithium Carbonate ER 300 MG TABLET.ER PO (08:01)
[2021-09-09] MEDS: hydroCHLOROthiazide 12.5 MG TABLET PO (08:01)
--- NOTE | 2021-09-09 13:58 | HO.PSYCHPN ---
Subjective Subjective Date of Service: 09/09/21 Reason For Visit: . Subjective Notes: Conditional Voluntary Interim History: the nursing staff reported that the patient has been confused at times. On interview, the patient denies new symptoms he is pleasant and cooperative but he is confused. He agreed to change Abilify to Risperdal. At this moment, the patient denies visual hallucinations Mental Status Exam Mental Status Exam Patient Appearance: Well Grooomed Patient Orientation: Person Level of Consciousness: Awake Mood Description: Withdrawn Affect Description: Constricted Ability to Follow Directions: Fair Speech Pattern: Clear Hallucinations: None Delusions: Not Present Thought Process: Distracted Thought Content: positive for Goal Oriented Judgement: Fair Diagnostics Vital Signs (24Hr): Vital Signs - 24 hr 09/08/21 18:00 09/09/21 06:00 Temperature 97.5 F 96.8 F Pulse Rate 82 79 Respiratory Rate 18 18 Blood Pressure 136/62 124/61 Pulse Oximetry 96 95 BMI result Body Mass Index 23.7 Labs Results: 09/06/21 08:09 09/06/21 08:09 Imaging Radiology Impressions: ITS Impressions Brain MRI 09/07/21 12:45 IMPRESSION: No acute intracranial process. Mild generalized parenchymal volume loss. 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 Recommend followup ENT evaluation. Medications Medications Current Medications Acetaminophen (Acetaminophen 325 Mg Tablet) 650 mg PO Q6H PRN PRN Reason: Headache/Pain Mild Scale (1-3) Al Hydroxide/Mg Hydroxide (Magnesium Hydrox/Alum Hydrox 30 Ml Oral.Susp) 30 ml PO Q6H PRN PRN Reason: Heartburn/Nausea Amlodipine Besylate (Amlodipine Besylate 5 Mg Tablet) 5 mg PO DAILY [facility]; Protocol Last Admin: 09/09/21 08:00 Dose: 5 mg Documented by: Folic Acid (Folic Acid 1 Mg Tablet) 1 mg PO DAILY [facility] Last Admin: 09/09/21 08:01 Dose: 1 mg Documented by: Hydrochlorothiazide (Hydrochlorothiazide 12.5 Mg Tablet) 12.5 mg PO DAILY [facility]; Protocol Last Admin: 09/09/21 08:01 Dose: 12.5 mg Documented by: Hydroxyzine HCl (Hydroxyzine Hcl 25 Mg Tablet) 25 mg PO BEDTIME PRN PRN Reason: Anxiety Levothyroxine Sodium (Levothyroxine Sodium 100 Mcg Tablet) 100 mcg PO DAILY@0600 [facility] Last Admin: 09/09/21 05:40 Dose: 100 mcg Documented by: [place] Carbonate ([place] Carbonate Er 300 Mg Tablet.Er) 300 mg PO DAILY [facility] Last Admin: 09/09/21 08:01 Dose: 300 mg Documented by: Magnesium Hydroxide (Milk Of Magnesia 30 Ml Oral.Susp) 30 ml PO DAILY PRN PRN Reason: Constipation Multivitamins/Vitamin C (Multivitamin Tablet) 1 tab PO DAILY [facility] Last Admin: 09/09/21 08:00 Dose: 1 tab Documented by: Olanzapine (Olanzapine 5 Mg Tablet) 5 mg PO DAILY PRN PRN Reason: Agitation Risperidone (Risperidone 0.5 Mg Tablet) 0.5 mg PO BID [facility] Last Admin: 09/09/21 08:00 Dose: 0.5 mg Documented by: Trazodone HCl (Trazodone Hcl 50 Mg Tablet) 12.5 mg PO TID PRN PRN Reason: Anxiety Trazodone HCl (Trazodone Hcl 25 Mg Halftab) 25 mg PO BEDTIME PRN PRN Reason: Insomnia Trazodone HCl (Trazodone Hcl 50 Mg Tablet) 50 mg PO BEDTIME PRN PRN Reason: Insomnia Last Admin: 09/05/21 21:16 Dose: 50 mg Documented by: Allergies Allergies Allergy/AdvReac Type Severity Reaction Status Date / Time gluten Allergy Unknown Verified 09/04/21 07:52 Assessment & Plan Assessment & Plan (1) Routine medical exam: Status: Acute Code(s): Z00.00 - Encounter for general adult medical examination without abnormal findings Assessment and Plan: the patient is a 81-year-old male with a long history of bipolar disorder admitted for exacerbation of visual hallucinations and disorganized behavior. According to the chart, the patient has responded in the past with Risperdal. Currently he is on Abilify. On interview, the patient denies new symptoms he feels much better. Plan 1. Discontinue Abilify. 2. Start Risperdal 0.5 mg p.o. b.i.d. to target psychosis. 3. Reassessment and gather more collateral information I spent minutes with the patient and/or on the patient floor today, greater than?50% of which was spent counseling/coordinating care. Reason for contiued inpatient stay Substantial Risk for: inability to function, rapid decompensation and med/psych decompensation
[2021-09-09 18:00] VITALS: BP 123/59; PULSE 84; RESP 18; TEMP 36.6; O2SAT 95
[2021-09-10] MEDS: Levothyroxine Sodium 100 MCG TABLET PO (06:29)
[2021-09-10 08:00] VITALS: BP 127/61; PULSE 94; RESP 16; TEMP 36.6; O2SAT 94
[2021-09-10] MEDS: Multivitamin TABLET 1 TAB PO (08:23)
[2021-09-10] MEDS: amLODIPine Besylate 5 MG TABLET PO (08:23)
[2021-09-10] MEDS: Lithium Carbonate ER 300 MG TABLET.ER PO (08:24)
[2021-09-10] MEDS: Folic Acid 1 MG TABLET PO (08:24)
[2021-09-10] MEDS: hydroCHLOROthiazide 12.5 MG TABLET PO (08:26)
--- NOTE | 2021-09-10 10:18 | P.PNPSI_ITS ---
Subjective Subjective Date of Service: 09/10/21 Reason For Visit: . Subjective Notes: Conditional Voluntary Medical Problems Affecting Mental Status: No Interim History: Patient was seen and discussed in rounds today. He continues to have confusion and some periods of being more pronounced. He is pleasant and cooperative. He is med compliant. He does a lot of things independently. He is a little more dysfunctional in the evenings. Eating and sleeping adequately. No complaints or side effects. No changes were made today Medication Compliance: Yes Side effects from medications: No Mental Status Exam Mental Status Exam Patient Appearance: Well Grooomed Patient Orientation: Person Level of Consciousness: Awake Mood Description: Withdrawn Affect Description: Constricted Ability to Follow Directions: Fair Speech Pattern: Clear Hallucinations: None Delusions: Not Present Thought Process: Distracted Thought Content: positive for Goal Oriented Judgement: Fair Diagnostics Vital Signs (24Hr): Vital Signs - 24 hr 09/09/21 18:00 09/10/21 08:00 Temperature 98 F 97.8 F Pulse Rate 84 94 Respiratory Rate 18 16 Blood Pressure 123/59 L 127/61 Pulse Oximetry 95 94 BMI result Body Mass Index 23.7 Labs Results: 09/06/21 08:09 09/06/21 08:09 Imaging Radiology Impressions: ITS Impressions Brain MRI 09/07/21 12:45 IMPRESSION: No acute intracranial process. Mild generalized parenchymal volume loss. 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 Recommend followup ENT evaluation. Medications Medications Current Medications Acetaminophen (Acetaminophen 325 Mg Tablet) 650 mg PO Q6H PRN PRN Reason: Headache/Pain Mild Scale (1-3) Al Hydroxide/Mg Hydroxide (Magnesium Hydrox/Alum Hydrox 30 Ml Oral.Susp) 30 ml PO Q6H PRN PRN Reason: Heartburn/Nausea Amlodipine Besylate (Amlodipine Besylate 5 Mg Tablet) 5 mg PO DAILY [facility]; Protocol Last Admin: 09/10/21 08:23 Dose: 5 mg Documented by: Folic Acid (Folic Acid 1 Mg Tablet) 1 mg PO DAILY [facility] Last Admin: 09/10/21 08:24 Dose: 1 mg Documented by: Hydrochlorothiazide (Hydrochlorothiazide 12.5 Mg Tablet) 12.5 mg PO DAILY [facility]; Protocol Last Admin: 09/10/21 08:26 Dose: 12.5 mg Documented by: Hydroxyzine HCl (Hydroxyzine Hcl 25 Mg Tablet) 25 mg PO BEDTIME PRN PRN Reason: Anxiety Levothyroxine Sodium (Levothyroxine Sodium 100 Mcg Tablet) 100 mcg PO DAILY@0600 [facility] Last Admin: 09/10/21 06:29 Dose: 100 mcg Documented by: [place] Carbonate ([place] Carbonate Er 300 Mg Tablet.Er) 300 mg PO DAILY [facility] Last Admin: 09/10/21 08:24 Dose: 300 mg Documented by: Magnesium Hydroxide (Milk Of Magnesia 30 Ml Oral.Susp) 30 ml PO DAILY PRN PRN Reason: Constipation Multivitamins/Vitamin C (Multivitamin Tablet) 1 tab PO DAILY [facility] Last Admin: 09/10/21 08:23 Dose: 1 tab Documented by: Olanzapine (Olanzapine 5 Mg Tablet) 5 mg PO DAILY PRN PRN Reason: Agitation Risperidone (Risperidone 0.5 Mg Tablet) 0.5 mg PO BID [facility] Last Admin: 09/09/21 20:21 Dose: 0.5 mg Documented by: Trazodone HCl (Trazodone Hcl 50 Mg Tablet) 12.5 mg PO TID PRN PRN Reason: Anxiety Trazodone HCl (Trazodone Hcl 25 Mg Halftab) 25 mg PO BEDTIME PRN PRN Reason: Insomnia Trazodone HCl (Trazodone Hcl 50 Mg Tablet) 50 mg PO BEDTIME PRN PRN Reason: Insomnia Last Admin: 09/05/21 21:16 Dose: 50 mg Documented by: Allergies Allergies Allergy/AdvReac Type Severity Reaction Status Date / Time gluten Allergy Unknown Verified 09/04/21 07:52 Assessment & Plan Assessment & Plan (1) Routine medical exam: Status: Acute Code(s): Z00.00 - Encounter for general adult medical examination without abnormal find ings Assessment and Plan: the patient is a 81-year-old male with a long history of bipolar disorder admitted for exacerbation of visual hallucinations and disorganized behavior. According to the chart, the patient has responded in the past with Risperdal. Currently he is on Abilify. On interview, the patient denies new symptoms he feels much better. Plan 1. Discontinue Abilify. 2. Start Risperdal 0.5 mg p.o. b.i.d. to target psychosis. 3. Reassessment and gather more collateral information 09/10/2021 Continue current regimen and plans. No changes were made today I spent minutes with the patient and/or on the patient floor today, greater than?50% of which was spent counseling/coordinating care. Reason for contiued inpatient stay Substantial Risk for: inability to function
[2021-09-10] MEDS: risperiDONE 0.5 MG TABLET PO ×2 (11:00→20:28)
[2021-09-10 18:00] VITALS: BP 113/61; PULSE 82; RESP 18; TEMP 36.2; O2SAT 98
[2021-09-11] MEDS: Levothyroxine Sodium 100 MCG TABLET PO (05:04)
[2021-09-11] MEDS: Multivitamin TABLET 1 TAB PO (09:14)
[2021-09-11] MEDS: hydroCHLOROthiazide 12.5 MG TABLET PO (09:14)
[2021-09-11] MEDS: Folic Acid 1 MG TABLET PO (09:14)
[2021-09-11] MEDS: amLODIPine Besylate 5 MG TABLET PO (09:14)
[2021-09-11] MEDS: risperiDONE 0.5 MG TABLET PO ×2 (09:14→20:53)
[2021-09-11] MEDS: Lithium Carbonate ER 300 MG TABLET.ER PO (09:14)
[2021-09-11 09:56] VITALS: BP 147/64; PULSE 88; RESP 16; TEMP 36.7; O2SAT 94
--- NOTE | 2021-09-11 10:18 | HO.PSYCHPN ---
Subjective Subjective Date of Service: 09/11/21 Reason For Visit: . Subjective Notes: Conditional Voluntary Medical Problems Affecting Mental Status: No Interim History: Patient was seen in rounds and discussed today. Records and plans were reviewed. He continues to be visible, times confused, especially at nights. Yesterday he was talking about guns and appears to have been having some hallucinations. He is not exhibiting any of this today. Eating and sleeping adequately. No complaints or side effects. No changes were made today Medication Compliance: Yes Side effects from medications: No Review of Systems Review of Systems negative except HPI Yes all other systems are reviewed and are negative Mental Status Exam Mental Status Exam Patient Appearance: Well Grooomed Patient Orientation: Person Level of Consciousness: Awake Mood Description: Withdrawn Affect Description: Constricted Ability to Follow Directions: Fair Speech Pattern: Clear Hallucinations: None Delusions: Not Present Thought Process: Distracted Thought Content: positive for Goal Oriented Judgement: Fair Diagnostics Vital Signs (24Hr): Vital Signs - 24 hr 09/10/21 18:00 09/11/21 09:56 Temperature 97.2 F 98.1 F Pulse Rate 82 88 Respiratory Rate 18 16 Blood Pressure 113/61 147/64 H Pulse Oximetry 98 94 BMI result Body Mass Index 23.7 Labs Results: 09/06/21 08:09 09/06/21 08:09 Imaging Radiology Impressions: ITS Impressions Brain MRI 09/07/21 12:45 IMPRESSION: No acute intracranial process. Mild generalized parenchymal volume loss. 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 Recommend followup ENT evaluation. Medications Medications Current Medications Acetaminophen (Acetaminophen 325 Mg Tablet) 650 mg PO Q6H PRN PRN Reason: Headache/Pain Mild Scale (1-3) Al Hydroxide/Mg Hydroxide (Magnesium Hydrox/Alum Hydrox 30 Ml Oral.Susp) 30 ml PO Q6H PRN PRN Reason: Heartburn/Nausea Amlodipine Besylate (Amlodipine Besylate 5 Mg Tablet) 5 mg PO DAILY [facility]; Protocol Last Admin: 09/11/21 09:14 Dose: 5 mg Documented by: Folic Acid (Folic Acid 1 Mg Tablet) 1 mg PO DAILY [facility] Last Admin: 09/11/21 09:14 Dose: 1 mg Documented by: Hydrochlorothiazide (Hydrochlorothiazide 12.5 Mg Tablet) 12.5 mg PO DAILY [facility]; Protocol Last Admin: 09/11/21 09:14 Dose: 12.5 mg Documented by: Hydroxyzine HCl (Hydroxyzine Hcl 25 Mg Tablet) 25 mg PO BEDTIME PRN PRN Reason: Anxiety Levothyroxine Sodium (Levothyroxine Sodium 100 Mcg Tablet) 100 mcg PO DAILY@0600 [facility] Last Admin: 09/11/21 05:04 Dose: 100 mcg Documented by: [place] Carbonate ([place] Carbonate Er 300 Mg Tablet.Er) 300 mg PO DAILY [facility] Last Admin: 09/11/21 09:14 Dose: 300 mg Documented by: Magnesium Hydroxide (Milk Of Magnesia 30 Ml Oral.Susp) 30 ml PO DAILY PRN PRN Reason: Constipation Multivitamins/Vitamin C (Multivitamin Tablet) 1 tab PO DAILY [facility] Last Admin: 09/11/21 09:14 Dose: 1 tab Documented by: Olanzapine (Olanzapine 5 Mg Tablet) 5 mg PO DAILY PRN PRN Reason: Agitation Risperidone (Risperidone 0.5 Mg Tablet) 0.5 mg PO BID [facility] Last Admin: 09/11/21 09:14 Dose: 0.5 mg Documented by: Trazodone HCl (Trazodone Hcl 50 Mg Tablet) 12.5 mg PO TID PRN PRN Reason: Anxiety Trazodone HCl (Trazodone Hcl 25 Mg Halftab) 25 mg PO BEDTIME PRN PRN Reason: Insomnia Trazodone HCl (Trazodone Hcl 50 Mg Tablet) 50 mg PO BEDTIME PRN PRN Reason: Insomnia Last Admin: 09/05/21 21:16 Dose: 50 mg Documented by: Allergies Allergies Allergy/AdvReac Type Severity Reaction Status Date / Time gluten Allergy Unknown Verified 09/04/21 07:52 Assessment & Plan Assessment & Plan (1) Routine medical exam: Status: Acute Code(s): Z00.00 - Encounter for general adult medical examination without abnormal findings Assessment and Plan: the patient is a 81-year-old male with a long history of bipolar disorder admitted for exacerbation of visual hallucinations and disorganized behavior. According to the chart, the patient has responded in the past with Risperdal. Currently he is on Abilify. On interview, the patient denies new symptoms he feels much better. Plan 1. Discontinue Abilify. 2. Start Risperdal 0.5 mg p.o. b.i.d. to target psychosis. 3. Reassessment and gather more collateral information 09/10/2021 Continue current regimen and plans. No changes were made today 09/11/2021 Continue current plans and regimen. No changes were made today I spent minutes with the patient and/or on the patient floor today, greater than?50% of which was spent counseling/coordinating care. Reason for contiued inpatient stay Substantial Risk for: other
[2021-09-11 18:00] VITALS: BP 144/62; PULSE 86; RESP 18; TEMP 36.3; O2SAT 95
[2021-09-12] MEDS: Levothyroxine Sodium 100 MCG TABLET PO (05:47)
[2021-09-12 06:00] VITALS: BP 127/59; PULSE 91; RESP 16; TEMP 36.6; O2SAT 96
[2021-09-12] MEDS: Lithium Carbonate ER 300 MG TABLET.ER PO (07:55)
[2021-09-12] MEDS: risperiDONE 0.5 MG TABLET PO ×2 (07:58→21:05)
[2021-09-12] MEDS: Multivitamin TABLET 1 TAB PO (07:58)
[2021-09-12] MEDS: amLODIPine Besylate 5 MG TABLET PO (07:59)
[2021-09-12] MEDS: hydroCHLOROthiazide 12.5 MG TABLET PO (07:59)
[2021-09-12] MEDS: Folic Acid 1 MG TABLET PO (08:00)
--- NOTE | 2021-09-12 14:32 | HO.PSYCHPN ---
Subjective Subjective Date of Service: 09/12/21 Reason For Visit: . Subjective Notes: Conditional Voluntary Interim History: the nursing staff reported the patient is pleasant on approach and he looks confused at times. He made a statement that there was a shooting in the unit another delusional statements. On interview the patient denies new symptoms he is pleasant and cooperative. His family wants to be discharged back at home, we will discuss the case tomorrow. Mental Status Exam Mental Status Exam Patient Appearance: Well Grooomed Patient Orientation: Person Level of Consciousness: Awake Patient Behavior: Cooperative Mood Description: Constricted Affect Description: Constricted Patient Cognition Impaired: Yes Ability to Follow Directions: Good Speech Pattern: Appropriate Memory Description: Intact Hallucinations: Auditory Delusions: Paranoid Ideation Thought Process: Linear Thought Content: positive for Circumstantial Judgement: Fair Diagnostics Vital Signs (24Hr): Vital Signs - 24 hr 09/11/21 18:00 09/12/21 06:00 Temperature 97.4 F 97.8 F Pulse Rate 86 91 Respiratory Rate 18 16 Blood Pressure 144/62 H 127/59 L Pulse Oximetry 95 96 BMI result Body Mass Index 23.7 Labs Results: 09/06/21 08:09 09/06/21 08:09 Imaging Radiology Impressions: ITS Impressions Brain MRI 09/07/21 12:45 IMPRESSION: No acute intracranial process. Mild generalized parenchymal volume loss. 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 Recommend followup ENT evaluation. Medications Medications Current Medications Acetaminophen (Acetaminophen 325 Mg Tablet) 650 mg PO Q6H PRN PRN Reason: Headache/Pain Mild Scale (1-3) Al Hydroxide/Mg Hydroxide (Magnesium Hydrox/Alum Hydrox 30 Ml Oral.Susp) 30 ml PO Q6H PRN PRN Reason: Heartburn/Nausea Amlodipine Besylate (Amlodipine Besylate 5 Mg Tablet) 5 mg PO DAILY [facility]; Protocol Last Admin: 09/12/21 07:59 Dose: 5 mg Documented by: Folic Acid (Folic Acid 1 Mg Tablet) 1 mg PO DAILY [facility] Last Admin: 09/12/21 08:00 Dose: 1 mg Documented by: Hydrochlorothiazide (Hydrochlorothiazide 12.5 Mg Tablet) 12.5 mg PO DAILY [facility]; Protocol Last Admin: 09/12/21 07:59 Dose: 12.5 mg Documented by: Hydroxyzine HCl (Hydroxyzine Hcl 25 Mg Tablet) 25 mg PO BEDTIME PRN PRN Reason: Anxiety Levothyroxine Sodium (Levothyroxine Sodium 100 Mcg Tablet) 100 mcg PO DAILY@0600 [facility] Last Admin: 09/12/21 05:47 Dose: 100 mcg Documented by: [place] Carbonate ([place] Carbonate Er 300 Mg Tablet.Er) 300 mg PO DAILY [facility] Last Admin: 09/12/21 07:55 Dose: 300 mg Documented by: Magnesium Hydroxide (Milk Of Magnesia 30 Ml Oral.Susp) 30 ml PO DAILY PRN PRN Reason: Constipation Multivitamins/Vitamin C (Multivitamin Tablet) 1 tab PO DAILY [facility] Last Admin: 09/12/21 07:58 Dose: 1 tab Documented by: Olanzapine (Olanzapine 5 Mg Tablet) 5 mg PO DAILY PRN PRN Reason: Agitation Risperidone (Risperidone 0.5 Mg Tablet) 0.5 mg PO BID [facility] Last Admin: 09/12/21 07:58 Dose: 0.5 mg Documented by: Trazodone HCl (Trazodone Hcl 50 Mg Tablet) 12.5 mg PO TID PRN PRN Reason: Anxiety Trazodone HCl (Trazodone Hcl 25 Mg Halftab) 25 mg PO BEDTIME PRN PRN Reason: Insomnia Trazodone HCl (Trazodone Hcl 50 Mg Tablet) 50 mg PO BEDTIME PRN PRN Reason: Insomnia Last Admin: 09/05/21 21:16 Dose: 50 mg Documented by: Allergies Allergies Allergy/AdvReac Type Severity Reaction Status Date / Time gluten Allergy Unknown Verified 09/04/21 07:52 Assessment & Plan Assessment & Plan (1) Routine medical exam: Status: Acute Code(s): Z00.00 - Encounter for general adult medical examination without abnormal findings Assessment and Plan: the patient is a 81-year-old male with a long history of bipolar disorder admitted for exacerbation of visual hallucinations and disorganized behavior. According to the chart, the patient has responded in the past with Risperdal. Currently he is on Abilify. On interview, the patient denies new symptoms he feels much better. Plan 1. Discontinue Abilify. 2. Start Risperdal 0.5 mg p.o. b.i.d. to target psychosis. 3. Reassessment and gather more collateral information 4. We will call the family and discussed discharge planning since they want to be discharged as soon as possible I spent minutes with the patient and/or on the patient floor today, greater than?50% of which was spent counseling/coordinating care. Reason for contiued inpatient stay Substantial Risk for: inability to function, rapid decompensation and med/psych decompensation
[2021-09-12 18:00] VITALS: BP 160/69; PULSE 82; RESP 18; TEMP 36.6; O2SAT 96
[2021-09-13 06:00] VITALS: BP 119/57; PULSE 82; RESP 16; TEMP 36.3; O2SAT 97
[2021-09-13] MEDS: Levothyroxine Sodium 100 MCG TABLET PO (06:40)
[2021-09-13] MEDS: Multivitamin TABLET 1 TAB PO (07:55)
[2021-09-13] MEDS: risperiDONE 0.5 MG TABLET PO ×2 (07:55→20:56)
[2021-09-13] MEDS: Lithium Carbonate ER 300 MG TABLET.ER PO (07:55)
[2021-09-13] MEDS: hydroCHLOROthiazide 12.5 MG TABLET PO (07:56)
[2021-09-13] MEDS: amLODIPine Besylate 5 MG TABLET PO (07:56)
[2021-09-13] MEDS: Folic Acid 1 MG TABLET PO (07:56)
--- NOTE | 2021-09-13 16:12 | P.PNPSI_ITS ---
Subjective Subjective Date of Service: 09/13/21 Reason For Visit: . Subjective Notes: Conditional Voluntary Interim History: the nursing staff reported that most of the time the patient is appropriate, denies anxiety or depression denies auditory or visual hallucin ations. But, on the 2nd shaved it seems that he looks more confused and he comes up with delusional is thinking. Her daughter has called several times that she wants to discharge him as soon as possible. We discussed the case with the team and I have a call with her daughter and explained her that the patient is okay most of the time but sometimes in the evening he have disorganized and confused if statements Mental Status Exam Mental Status Exam Patient Appearance: Well Grooomed Patient Orientation: Person Level of Consciousness: Awake Patient Behavior: Cooperative Mood Description: Constricted Affect Description: Calm Patient Cognition Impaired: No Ability to Follow Directions: Good Speech Pattern: Appropriate Memory Description: Intact Hallucinations: None Delusions: Not Present Diagnostics Vital Signs (24Hr): Vital Signs - 24 hr 09/12/21 18:00 09/13/21 06:00 Temperature 97.9 F 97.4 F Pulse Rate 82 82 Respiratory Rate 18 16 Blood Pressure 160/69 H 119/57 L Pulse Oximetry 96 97 BMI result Body Mass Index 23.7 Labs Results: 09/06/21 08:09 09/06/21 08:09 Imaging Radiology Impressions: ITS Impressions Brain MRI 09/07/21 12:45 IMPRESSION: No acute intracranial process. Mild generalized parenchymal volume loss. 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 Recommend followup ENT evaluation. Medications Medications Current Medications Acetaminophen (Acetaminophen 325 Mg Tablet) 650 mg PO Q6H PRN PRN Reason: Headache/Pain Mild Scale (1-3) Al Hydroxide/Mg Hydroxide (Magnesium Hydrox/Alum Hydrox 30 Ml Oral.Susp) 30 ml PO Q6H PRN PRN Reason: Heartburn/Nausea Amlodipine Besylate (Amlodipine Besylate 5 Mg Tablet) 5 mg PO DAILY [facility]; Protocol Last Admin: 09/13/21 07:56 Dose: 5 mg Documented by: Folic Acid (Folic Acid 1 Mg Tablet) 1 mg PO DAILY [facility] Last Admin: 09/13/21 07:56 Dose: 1 mg Documented by: Hydrochlorothiazide (Hydrochlorothiazide 12.5 Mg Tablet) 12.5 mg PO DAILY [facility]; Protocol Last Admin: 09/13/21 07:56 Dose: 12.5 mg Documented by: Hydroxyzine HCl (Hydroxyzine Hcl 25 Mg Tablet) 25 mg PO BEDTIME PRN PRN Reason: Anxiety Levothyroxine Sodium (Levothyroxine Sodium 100 Mcg Tablet) 100 mcg PO DAILY@0600 [facility] Last Admin: 09/13/21 06:40 Dose: 100 mcg Documented by: [place] Carbonate ([place] Carbonate Er 300 Mg Tablet.Er) 300 mg PO DAILY [facility] Last Admin: 09/13/21 07:55 Dose: 300 mg Documented by: Magnesium Hydroxide (Milk Of Magnesia 30 Ml Oral.Susp) 30 ml PO DAILY PRN PRN Reason: Constipation Multivitamins/Vitamin C (Multivitamin Tablet) 1 tab PO DAILY [facility] Last Admin: 09/13/21 07:55 Dose: 1 tab Documented by: Olanzapine (Olanzapine 5 Mg Tablet) 5 mg PO DAILY PRN PRN Reason: Agitation Risperidone (Risperidone 0.5 Mg Tablet) 0.5 mg PO BID [facility] Last Admin: 09/13/21 07:55 Dose: 0.5 mg Documented by: Trazodone HCl (Trazodone Hcl 50 Mg Tablet) 12.5 mg PO TID PRN PRN Reason: Anxiety Trazodone HCl (Trazodone Hcl 25 Mg Halftab) 25 mg PO BEDTIME PRN PRN Reason: Insomnia Trazodone HCl (Trazodone Hcl 50 Mg Tablet) 50 mg PO BEDTIME PRN PRN Reason: Insomnia Last Admin: 09/05/21 21:16 Dose: 50 mg Documented by: Allergies Allergies Allergy/AdvReac Type Severity Reaction Status Date / Time gluten Allergy Unknown Verified 09/04/21 07:52 Assessment & Plan Assessment & Plan (1) Routine medical exam: Status: Acute Code(s): Z00.00 - Encounter for general adult medical examination without abnormal findings Assessment and Plan: the patient is a 81-year-old male with a long history of bipolar disorder admitted for exacerbation of visual hallucinations and disorganized behavior. According to the chart, the patient has responded in the past with Risperdal. Currently he is on Abilify. On interview, the patient denies new symptoms he feels much better. Plan 1. Discontinue Abilify. 2. Start Risperdal 0.5 mg p.o. b.i.d. to target psychosis. 3. Reassessment and gather more collateral information 4. We will call the family and discussed discharge planning since they want to be discharged as soon as possible I spent minutes with the patient and/or on the patient floor today, greater than?50% of which was spent counseling/coordinating care. Reason for contiued inpatient stay Substantial Risk for: stable for discharge, rapid decompensation and med/psych decompensation
[2021-09-13 18:00] VITALS: BP 98/52; PULSE 95; RESP 18; TEMP 36.5; O2SAT 96
[2021-09-14] MEDS: Levothyroxine Sodium 100 MCG TABLET PO (05:45)
[2021-09-14 08:00] VITALS: BP 139/64; PULSE 89; TEMP 36.1; O2SAT 94
[2021-09-14] MEDS: hydroCHLOROthiazide 12.5 MG TABLET PO (08:08)
[2021-09-14] MEDS: Lithium Carbonate ER 300 MG TABLET.ER PO (08:09)
[2021-09-14] MEDS: amLODIPine Besylate 5 MG TABLET PO (08:09)
[2021-09-14] MEDS: Multivitamin TABLET 1 TAB PO (08:09)
[2021-09-14] MEDS: risperiDONE 0.5 MG TABLET PO (08:09)
[2021-09-14] MEDS: Folic Acid 1 MG TABLET PO (08:09)
--- NOTE | 2021-09-14 11:27 | P.DS_ITS ---
DS: Providers Provider Date of Service: 09/14/21 Date of admission: 09/03/21 20:20 Date of discharge: 09/14/21 Primary care physician: Dean Cuevas MD Consults: 09/04/21 18:09 Consult to Hospitalist Routine Consulting Provider: Hospitalist Reason For Exam: Pt new admit from [facility] Observation unit. Attending physician on discharge: Fermin rOozco DS: Diagnosis Discharge Diagnosis (1) Bipolar 1 disorder: Status: Acute (2) Hallucinosis: Status: Acute DS: Medications Discharge Medications Home Medications: Home Medications Medication Instructions Recorded Confirmed Trelegy Ellipta 1 puff INHALATION DAILY 09/03/21 09/03/21 acetaminophen 500 mg tablet 1,000 mg PO QPM PRN 09/03/21 09/03/21 amlodipine 5 mg tablet 5 mg PO DAILY 09/03/21 09/03/21 aripiprazole 5 mg tablet 5 mg PO DAILY 09/03/21 09/03/21 folic acid 1 mg tablet 1 mg PO DAILY 09/03/21 09/03/21 hydrochlorothiazide 25 mg tablet 12.5 mg PO DAILY 09/03/21 09/03/21 levothyroxine 100 mcg tablet 100 mcg PO DAILY 09/03/21 09/03/21 lithium carbonate 300 mg 300 mg PO DAILY 09/03/21 09/03/21 tablet,extended release multivitamin 1 tab PO DAILY 09/03/21 09/03/21 olanzapine 5 mg tablet 5 mg PO DAILY PRN 09/03/21 09/03/21 trazodone 50 mg tablet 12.5 mg PO TID PRN 09/03/21 09/03/21 trazodone 50 mg tablet 25 mg PO BEDTIME PRN 09/03/21 09/03/21 Mental Status Exam Mental Status Exam Patient Appearance: Well Grooomed Patient Orientation: Person Level of Consciousness: Awake Patient Behavior: Appropriate Mood Description: Calm Affect Description: Appropriate Patient Cognition Impaired: No Ability to Follow Directions: Good Speech Pattern: Clear Hallucinations: None Delusions: Not Present Thought Process: Linear Thought Content: positive for Circumstantial, positive for Poverty of Content and positive for Evasive Judgement: Fair Data Imaging Diagnostic Imaging Impressions Brain MRI 09/07/21 12:45 IMPRESSION: No acute intracranial process. Mild generalized parenchymal volume loss. 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 Recommend followup ENT evaluation. DS: Summary Hospital Course Hospital Course: the patient was initially admitted due to exacerbation of hallucinations, mostly visual and disorganized behavior for the last 3 months. Please see HPI of the admission note for further details. On admission, the patient was brendon nued on Abilify 5 mg p.o. daily and lithium as a mood stabilizer. The patient carries a diagnosis of bipolar type 1 and he has been stable for years on lithium. Apparently, the patient psychiatrist diet and he did not have follow-up for several months. His primary care took the refills and initially he stopped lithium and started on Abilify but he decompensated and he started having visual hallucinations and disorganized thought process. And neurology saw him at [facility], we contact him and apparently he was fully worked out for dementia and apparently he did not have Alzheimer's or Lewy body dementia. We discussed with the family, the neurologist and the patient and sings historically, he responded fairly well to Risperdal, Abilify was discontinued and Risperdal was started titrated up to 0.5 mg p.o. b.i.d.. The patient's hallucinations improved, there were no evidence of paranoia but the staff noticed that in the afternoon the patient seems more confused and delusional. The family requested a sooner discharge and since there were no safety concerns discharge planning was started. Time Spent with Patient Time attestation: Total time spent providing and/or coordinating discharge services: Discharge Plan Discharge Patient Disposition: Home, Self-Care Discharge Diagnosis: Bipolar disorder type 1 Referrals: [facility] [Other] - 3-5 Days (Referral made on 09/12/21, please call if you have not heard from agency 3/5 days after discharge.) Dr. Noel Cui [Other] - 10/11/21 9:30 am (Appointment scheduled for September,10/11/21 @ 9:30 AM via telehealth. One time consult only and will provide medication recommendations for PCP.) [facility] [Other] - 1 Day (Referral made to [facility] on 09/14/21. ) [facility] [Other] - 09/26/21 2:45 pm (Initial medication appointment scheduled for Sunday, September 26, 2021 @ 2:45 PM via telehealth with medication prescriber Kal Cheung. Will call home phone for appointment.) Dean Cuevas MD [Primary Care Provider] - 10/04/21 1:45 pm (Appointment will also be used for discharge f/u ) Discharge Medications: New risperidone 0.5 mg Tablet 0.5 mg PO BID 30 Days Qty: 60 RF: 0 Continued Trelegy Ellipta 1 puff inhalation DAILY RF: 0 multivitamin Tablet 1 tab PO DAILY 30 Days Qty: 30 RF: 0 trazodone 50 mg Tablet 12.5 mg PO TID PRN (Reason: Anxiety) 30 Days Qty: 8 RF: 0 trazodone 50 mg Tablet 25 mg PO BEDTIME PRN (Reason: Insomnia) 30 Days Qty: 15 RF: 0 lithium carbonate 300 mg Tablet Extended Release 300 mg PO DAILY 30 Days Qty: 30 RF: 0 amlodipine 5 mg Tablet 5 mg PO DAILY 30 Days Qty: 30 RF: 0 levothyroxine 100 mcg Tablet 100 mcg PO DAILY 30 Days Qty: 30 RF: 0 folic acid 1 mg Tablet 1 mg PO DAILY 30 Days Qty: 30 RF: 0 hydrochlorothiazide 25 mg Tablet 12.5 mg PO DAILY 30 Days Qty: 15 RF: 0 Discontinued olanzapine 5 mg Tablet 5 mg PO DAILY PRN (Reason: Agitation) RF: 0 acetaminophen 500 mg Tablet 1,000 mg PO QPM PRN (Reason: Fever) RF: 0 aripiprazole 5 mg Tablet 5 mg PO DAILY RF: 0 Discharge Orders: Discharge Order (Routine); Ordered 09/14/21 Ordered By: Fermin Orozco Diet: advance to usual diet Activity on Discharge: As tolerated Stand Alone Forms: Patient Portal Discharge page, Community Support Care Plan Goals: Care plan goals achieved Health Concerns: continue treatment with outpatient providers Plan of Treatment: continue medication management and psychotherapy Assessment: the patient is an elderly male with a prior history of bipolar disorder who was admitted for the recent exacerbation of visual hallucinations and disorganized thought process. The patient was already worked out for the possibility of a dementia and so far, there is no evidence of this condition but he has a sporadic psychotic symptoms in the afternoon. We advised the family to follow closely and continue treatment with his neurologist. At this moment the patient does not have inpatient level of care criteria.
--- NOTE | 2021-09-14 13:12 | PC.NURSE ---
Patient was aware and ready for discharge. Paperwork reviewed with patient. Next dose medications and follow up appointment explained to patient. Patient verbalized understanding .Patient was pleasant and cooperative. Patient was accompanied with belongings to the front of the building per hospital policy
== END 2021-09-14 13:10 | disposition home or self-care (01) | DRG 885 ==
PROVIDERS: Admitting Provider Psychiatry & Neurology Psychiatry; PCP Internal Medicine; Visit Provider Psychiatry & Neurology Psychiatry
DX: F31.9 Bipolar disorder, unspecified (principal); K90.0 Celiac disease; I12.9 Hypertensive chronic kidney disease with stage 1 through stage 4 chronic kidney disease, or unspecified chronic kidney disease; N18.30 Chronic kidney disease, stage 3 unspecified; J44.9 Chronic obstructive pulmonary disease, unspecified; Z87.891 Personal history of nicotine dependence; Z79.890 Hormone replacement therapy; Z79.899 Other long term (current) drug therapy
CPT/HCPCS: 36415; 70551; 80048; 80061; 80076; 80178; 83036; 85025; 97161